=== PATIENT | male | born 1955 | race Caucasian/White ===

== ENCOUNTER → 2018-02-15 | Outpatient (CLI) | payer OTHER | END | disposition home or self-care (01) | LOC: PLD 10:45 → LAB SHORT 10:45 | DX: D22.72 Melanocytic nevi of left lower limb, including hip (principal); D22.71 Melanocytic nevi of right lower limb, including hip | CPT/HCPCS: 88305 ==

== ENCOUNTER 2021-02-18 11:34 | Day surgery (SDC) | payer OTHER, MEDICARE ==
[~2021-02-18] VITALS: Ht 172.7 cm; Wt 73.6 kg
[2021-02-18] MEDS ORDERED: Lisinopril-Hct1 EAC4 PO (12:06)
== END 2021-02-18 16:15 | disposition home or self-care (01) ==
LOC: ORSCSDS 11:34
PROVIDERS: Orthopaedic Surgery
PROC: 0LS44ZZ Reposition Left Upper Arm Tendon, Percutaneous Endoscopic Approach (ICD-10-PCS; principal; 2021-02-18 13:00)
PROC: 0RNK4ZZ Release Left Shoulder Joint, Percutaneous Endoscopic Approach (ICD-10-PCS; principal; 2021-02-18 13:00)
PROC: 0LM24ZZ Reattachment of Left Shoulder Tendon, Percutaneous Endoscopic Approach (ICD-10-PCS; principal; 2021-02-18 13:00)
DX: M75.122 Complete rotator cuff tear or rupture of left shoulder, not specified as traumatic (principal); M75.22 Bicipital tendinitis, left shoulder; M75.42 Impingement syndrome of left shoulder; M19.012 Primary osteoarthritis, left shoulder; I10 Essential (primary) hypertension; Z79.899 Other long term (current) drug therapy
CPT/HCPCS: C1713; J0171; J0690; J1100; J1885; J2250; J2405; J2704; J3010; J7120

== ENCOUNTER 2021-06-18 06:08 | Day surgery (SDC) | payer OTHER, MEDICARE ==
[~2021-06-18] VITALS: Ht 172.7 cm; Wt 74.9 kg
[~2021-06-18 06:08] MED LIST: Lisinopril-Hct1 EAC4 PO
--- NOTE | 2021-06-18 09:09 | NUR ---
SUMMARY: REMAINED PT'S RN FOR STEPDOWN PHASE OF RECOVERY. TOLERATED PO FLUIDS WITHOUT DIFFICULTY. DENIED PAIN OR NAUSEA THROUGHOUT STAY. MINIMAL SWELLING TO MEDIPORT SITE UNCHANGED FROM PACU. REVIEWED DC INSTRUCTIONS WITH PATIENT AND - BOTH OF WHOM VERBALIZED UNDERSTANDING OF ALL. PT STOOD AT EDGE OF BED TO VOID 400 CC YELLOW URINE. ASSISTED PT IN DRESSING SELF. IV D/C TIP INTACT PRIOR TO DC AND SITE COVERED WITH GAUZE/COBAN. DC HOME VIA WC WITH TO DRIVE HIM AT 0905.
== END 2021-06-18 23:33 | disposition home or self-care (01) ==
LOC: ORSCMMR 06:08 → ORD 10:30 → ORSCMMR 10:30
PROVIDERS: Surgery
PROC: 05HM33Z Insertion of Infusion Device into Right Internal Jugular Vein, Percutaneous Approach (ICD-10-PCS; principal; 2021-06-18 07:30)
PROC: B543ZZA Ultrasonography of Right Jugular Veins, Guidance (ICD-10-PCS; principal; 2021-06-18 07:30)
DX: C82.08 Follicular lymphoma grade I, lymph nodes of multiple sites (principal); I10 Essential (primary) hypertension; Z79.899 Other long term (current) drug therapy
CPT/HCPCS: 77001; C1788; J0690; J1100; J1642; J2250; J2405; J2704; J3010; J7120

== ENCOUNTER 2022-01-06 06:06 | Day surgery (SDC) | payer OTHER, MEDICARE ==
[~2022-01-06] VITALS: Ht 170.2 cm; Wt 72.9 kg
== END 2022-01-06 09:15 | disposition home or self-care (01) ==
LOC: ORSCSDS 06:06
PROVIDERS: Surgery
PROC: 07BH0ZX Excision of Right Inguinal Lymphatic, Open Approach, Diagnostic (ICD-10-PCS; principal; 2022-01-06 07:30)
DX: C82.55 Diffuse follicle center lymphoma, lymph nodes of inguinal region and lower limb (principal); I10 Essential (primary) hypertension; Z79.899 Other long term (current) drug therapy
CPT/HCPCS: 88305; 88341; 88342; J0690; J1100; J1885; J2370; J2405; J2704; J2795; J3010